=== PATIENT | male | born 1980 | race Two or more races ===

== ENCOUNTER 2021-04-14 13:15 | Emergency (ER) | payer SELFPAY ==
[~2021-04-14] VITALS: Ht 177.8 cm; Wt 77.1 kg
[2021-04-14 13:35] VITALS: BP 132/71
== END 2021-04-14 15:07 | disposition left against medical advice (07) ==
LOC: EDBD 13:15 → ER 13:15
DX: S09.90XA Unspecified injury of head, initial encounter (principal); T40.601A Poisoning by unspecified narcotics, accidental (unintentional), initial encounter; Y92.89 Other specified places as the place of occurrence of the external cause; Z53.29 Procedure and treatment not carried out because of patient's decision for other reasons; F17.210 Nicotine dependence, cigarettes, uncomplicated; F12.10 Cannabis abuse, uncomplicated; W19.XXXA Unspecified fall, initial encounter; Y93.89 Activity, other specified; Y99.8 Other external cause status
CPT/HCPCS: 93005